=== PATIENT | male | born 1950 | race Caucasian/White ===

== ENCOUNTER 2018-02-11 10:52 | Emergency (ER) | payer SELFPAY ==
[~2018-02-11] VITALS: Ht 172.7 cm; Wt 72.0 kg
[2018-02-11 13:09] LABS: BASOPHILS % 0.6 % (0.0-2.0); EOSINOPHILS % 1.6 % (0.0-5.0); LYMPHOCYTES % 20.3 % (20.0-50.0); MEAN CORPUSCULAR HEMOGLOBIN 34.7 pg (28.0-32.0); MEAN CORPUSCULAR VOLUME 99.6 fL (80.0-94.0); MEAN PLATELET VOLUME 7.7 fl (7.4-10.4); MONOCYTES % 13.1 % (2.0-8.0); NEUTROPHILS % 64.4 % (40.0-76.0); PLATELET 264 x1000/uL (130-400); RED BLOOD CELL COUNT 4.32 mill/uL (4.7-6.1); RED CELL DISTRIBUTION WIDTH 13.5 % (11.6-14.6)
[2018-02-11 13:14] LABS: CHLORIDE 99 mEq/L (98-107)
[2018-02-11 15:56] VITALS: BP 142/76
== END 2018-02-11 16:16 | disposition left against medical advice (07) ==
LOC: ER 10:52
DX: R07.89 Other chest pain (principal); I10 Essential (primary) hypertension
CPT/HCPCS: 36415; 71045; 83880; 84443; 84484; 85379; 93005; 99284